=== PATIENT | female | born 1955 | race African-American/Black ===

== ENCOUNTER 2023-08-03 12:57 | Emergency (ER) | payer OTHER, SELFPAY ==
--- NOTE | ~2023-08-03 | CT_ITS ---
EXAMINATION: CT HEAD WITHOUT CONTRAST CLINICAL INFORMATION: Head injury, pain COMPARISON: None available. TECHNIQUE: Contiguous axial imaging was performed from the skull base to vertex without intravenous administration of contrast. This CT examination was performed using dose optimization techniques as appropriate, variously including the following: *Automated exposure control *Adjustment of mA and/or kV according to patient size (this includes techniques or standardized protocols for targeted exams where dose is matched to indication/reason for exam; i.e. extremities or head) *Use of iterative reconstruction technique DLP: 648.21 mGy-cm FINDINGS: No acute intracranial hemorrhage or infarct. The hammond-white matter differentiation is preserved. No midline shift or hydrocephalus. No acute extra-axial fluid collections. The osseous structures are unremarkable. No orbital pathology. Complete opacification of the most posterior right ethmoid air cell. Mastoid air cells are clear. Atherosclerotic calcifications of the bilateral carotid siphons. CT/CT head/brain wo IV con IMPRESSION: No acute intracranial pathology.
[2023-08-03 12:59] VITALS: BP 143/99; PULSE 70; RESP 20; TEMP 36.8; O2SAT 98; BMI 25.4
--- NOTE | 2023-08-03 12:59 | ED_ITS ---
HPI - General Adult General Chief complaint: General Medical Stated complaint: Dizziness/Low blood pressure Time Seen by Provider: 08/03/23 13:43 Source: patient Mode of arrival: ambulatory Limitations: no limitations History of Present Illness HPI narrative: Patient is a 67 year old assigned female at with no reported medical history presenting to the emergency department today with dizziness / weakness and back pain. Patient states that on 07/24 she had a heavy metal bar fall on her upper back. Patient states that since then she has had dizziness, weakness, and back pain. Patient states that she was seen at [facility] where they scanned her cervical and thoracic spine that showed no fractures. Patient denies any lightheadedness, abdominal pain, nausea, vomiting, fever, chills, blurry vision, double vision, loss of vision, chest pain, difficulty breathing, shortness of breath, night sweats, pain with urination, increased urinary frequency, increased urinary urgency, blood in her urine or stool, syncope or a near syncopal episode, bowel incontinence, bladder incontinence, bowel retention, bladder retention, or any other complaints at this time. Onset (ago): day(s) () Location: head and back Severity: mild Severity scale (1-10): 3 Quality: aching and dull Pain Consistency: constant Relieving factors: none Exacerbating factors: none Associated symptoms: weakness Treatments prior to arrival: none Related Data Previous Rx's Medication Instructions Recorded ondansetron 4 mg disintegrating 4 mg PO Q8H 3 days #9 tabs 08/03/23 tablet Allergies Allergy/AdvReac Type Severity Reaction Status Date / Time Penicillins Allergy rash Unverified 08/03/23 13:04 percocet AdvReac other Uncoded 08/03/23 13:04 Review of Systems 2 Constitutional: Constitutional: Reports no additional constitutional complaints, Denies chills, Denies fever(s), Reports headache(s) and Denies night sweats Eyes: Eyes: Reports no additional eye complaints, Denies blurry vision, Denies change in vision, Denies diplopia, Denies eye discharge, Denies loss of vision and Denies eye pain ENT: Reports dizziness and Reports headache(s) Cardiovascular: Cardiovascular: Reports no additional cardiovascular complaints, Denies chest pain, Denies lightheadedness, Denies Loss of Consciousness and Denies dyspnea Respiratory: Respiratory: Reports no additional respiratory complaints and Denies dyspnea Gastrointestinal: Gastrointestinal: Reports no additional gastrointestinal complaints, Denies abdominal pain, Denies melena, Denies hematochezia, Denies change in bowel habits and Denies change in stool character Genitourinary: Genitourinary: Denies hematuria, Denies urinary frequency, Denies dysuria, Denies urinary incontinence, Denies urinary hesitancy and Denies urinary urgency Musculoskeletal: Musculoskeletal: Reports no additional musculoskeletal complaints, Reports back pain, Denies numbness and Denies tingling Neurologic: Reports dizziness, Reports headache(s), Denies loss of vision, Denies numbness and Denies tingling Psychiatric: Psychiatric: Reports no additional psychiatric complaints Endocrine: Endocrine: Reports no additional endocrine complaints Hematologic/Lymphatic: Hematologic/Lymphatic: Reports no additional hematologic/lymphatic complaints Allergic/Immunologic: Allergic/Immunologic: Reports no additional allergic/immunologic complaints PMFSH Past Medical History Attestation statement: The following information was validated with the patient. Source: old records reviewed and nursing notes reviewed Social History Smoked in Last 30 Days: Yes Advance Directives: No Advance Directives Information Provided: Yes Physical Exam ED Vital Signs: Vital Signs - 24 hr 08/03/23 12:59 08/03/23 13:28 Temperature 98.2 F 98.1 F Pulse Rate 70 64 Respiratory Rate 20 13 Blood Pressure 143/99 H 121/65 Pulse Oximetry 98 98 Oxygen Delivery Method Room Air Room Air BMI result Body Mass Index 25.4 Const General: cooperative, no acute distress, alert and awake Nutritional Appearance: well nourished Orientation/consciousness: patient oriented x3 Limitations: no limitations [facility] Head: Yes normal to inspection and Yes atraumatic Ears: hearing grossly normal bilaterally and external ears normal General nose exam: Normal external nose present, no nasal discharge noted and no epistaxis Face and sinus: Yes normal facial exam, No abrasion and No laceration Mouth: Normal oral and palatal mucosa present, no drooling and no muffled voice Eyes General: appearance normal, both eyes and all related structures Periorbital: periorbital findings normal Eyelids: Yes eyelids normal Conjunctivae: conjunctivae normal Pupils: Equal, round and reactive pupils present EOM: EOMs intact bilaterally Neck Neck: Yes normal visual inspection, Yes full ROM and Yes no lymphadenopathy Chest Chest palpation & inspection: normal inspection of the chest Resp Effort & Inspection: normal respiratory effort and able to speak in complete sentences GI Inspection: Yes normal to inspection General: Yes no CVA tenderness Back/Spine/Pelvis Back: no CVA tenderness Cervical Spine: normal cervical lordosis and cervical ROM normal Thoracic/Lumbar Spine: thoracic and lumbar spine normal to inspection and thoraco-lumbar ROM normal Pelvis: no pain with anterior-posterior compression Neuro General: patient oriented x3 and moves all extremities Cranial nerves: Yes Equal, round and reactive pupils present Cognition (Neuro): normal cognition Motor exam (neuro): 5/5 motor strength present throughout Sensory Exam: Normal double simultaneous stimulation for sensation Coordination: [id number] test normal Extrem General: Yes normal to inspection, Yes full ROM and Yes capillary refill normal Psych Appearance: grossly normal Mental Status: mental status grossly normal Affect: normal affect Attitude: cooperative Thought process: Normal thought process present Thought content: Normal thought content present Insight: Good insight present (Psych) Course Course Course Narrative: This is a rapid medical exam: Additional HPI, ROS, PE not included below will be deferred to primary provider. Patient is a 67-year-old female presenting to the ED with complaint of dizziness since a metal bar fell on her at work on 07/25. Patient was seen at [facility] after the injury, had a CT scan there and was told she did not have any injuries. Complains of bilateral shoulder pain since that time. Checked BP at home which was low, 101 systolic. Has been taking Tylenol and a muscle relaxer for her pain. Plan: EKG, basic labs, [place] [facility] [place] Decision Making Medical Decision Making MDM Narrative: Patient is a 67 year old assigned female at with no reported medical history presenting to the emergency department today with dizziness. Patient's physical exam was unremarkable. Patient's blood work was unremarkable. Patient's EKG was unremarkable. Patient's head CT showed no acute process. I reviewed the results of the cervical and thoracic CTs from [facility] which showed no acute process. I explained my physical exam findings as well as all test results to the patient. I answered all questions asked by the patient. I stressed the importance of the patient taking her medication as prescribed. 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 I stressed the importance of the patient returning to the emergency department immediately if her symptoms were to worsen or if she were to develop any dizziness, shortness of breath, difficulty breathing, chest pain, blurry vision, loss of vision, nausea, vomiting, abdominal pain, fever, chills, back pain, or any other complaints. Patient verbalized agreement and understanding with this treatment plan and discharge. Differential Diagnosis Differential Diagnoses: The differential diagnosis associated with the presentation includes Concussion Back pain Muscle spasm Admission/Observation Consideration of admission/observation: Escalation of care including admission/observation considered Patient would have been admitted to the hospital had her work up had any findings where hospital admission was appropriate and her clinical presentation warranted hospital admission. Lab Data MDM Lab Attestation statement: I reviewed the patient's lab results. My interpretation of these studies and their corresponding values is that they are grossly normal. 08/03/23 13:21 08/03/23 13:21 Labs: Lab Results 08/03/23 Range/Units 13:21 WBC 3.7 L (4.8-10.8) X10*3/uL RBC 4.16 L (4.20-5.50) X10*6/uL Hgb 11.5 L (12.0-16.0) g/dl Hct 32.1 L (37.0-47.0) % MCV 77.2 L (80.0-98.0) fL MCH 27.6 (27.0-33.0) pg MCHC 35.8 H (31.0-35.0) g/dl RDW 14.0 (11.0-16.0) % Plt Count 193 (160-400) X10*3/uL MPV 10.6 (9.4-12.3) fL Immature Gran % (Auto) 0.0 (0.0-0.4) % Neut % (Auto) 39.8 L (45-73) % Lymph % (Auto) 43.1 H (20-40) % [place] % (Auto) 16.3 H (2-11) % Eos % (Auto) 0.3 (0-4) % Baso % (Auto) 0.5 (0-2) % Lymph # (Auto) 1.6 (1.2-4.9) X10*3/uL [place] # (Auto) 0.6 (0.1-1.2) X10*3/uL Eos # (Auto) 0.0 (0.0-0.4) X10*3/uL Baso # (Auto) 0.0 (0.0-0.2) X10*3/uL Abs Immat Gran (auto) 0.00 (0.00-0.03) X10*3/uL Absolute Neuts (auto) 1.5 L (2.0-8.3) x10*3/uL Absolute Nucleated RBC 0.000 (0.0-0.012) X10*3/uL Nucleated RBC % (auto) 0.0 (0.0-0.2) /100WBC Sodium 136 (135-145) mmol/L Potassium 3.4 (3.3-5.1) mmol/L Chloride 103 (96-108) mmol/L Carbon Dioxide 26 (22-29) mmol/L Anion Gap 10 L (12-20) BUN 13 (9-16) mg/dL Creatinine 0.79 (0.5-1.4) mg/dL Estim Creat Clear Calc 55.5 Estimated GFR > 60 Random Glucose 125 H (60-115) mg/dL Calcium 9.6 (8.4-10.2) mg/dL Independent Interpretation I performed an independent interpretation of an: EKG and CT Scan Interpretation: My interpretation is in agreement with the radiologist's impression of this imaging study. - EXAMINATION: CT HEAD WITHOUT CONTRAST CLINICAL INFORMATION: Head injury, pain COMPARISON: None available. TECHNIQUE: Contiguous axial imaging was performed from the skull base to vertex without intravenous administration of contrast. This CT examination was performed using dose optimization techniques as appropriate, variously including the following: *Automated exposure control *Adjustment of mA and/or kV according to patient size (this includes techniques or standardized protocols for targeted exams where dose is matched to indication/reason for exam; i.e. extremities or head) *Use of iterative reconstruction technique DLP: 648.21 mGy-cm FINDINGS: No acute intracranial hemorrhage or infarct. The hammond-white matter differentiation is preserved. No midline shift or hydrocephalus. No acute extra-axial fluid collections. The osseous structures are unremarkable. No orbital pathology. Complete opacification of the most posterior right ethmoid air cell. Mastoid air cells are clear. Atherosclerotic calcifications of the bilateral carotid siphons. CT/CT head/brain wo IV con IMPRESSION: No acute intracranial pathology. Dictated By: Cecille Rick MD Signed By: Electronically signed by Cecille Rick MD 08/03/23 1452 - Vent. Rate: 066 BPM Atrial Rate: 066 BPM P-R Int: 228 ms QRS Dur: 082 ms QT Int: 396 ms P-R-T Axes: 043 -08 054 degrees QTc Int: 415 ms Sinus rhythm with 1st degree A-V block Nonspecific ST abnormality Abnormal ECG No previous ECGs available DD/ 1316 Radiology Impression Discussion of test interpretation with radiology: I have reviewed the radiologist's reading. 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 Return to the emergency department immediately if your symptoms worsen or if you develop any dizziness, shortness of breath, difficulty breathing, chest pain, blurry vision, loss of vision, nausea, vomiting, abdominal pain, fever, chills, back pain, or any other complaints. Prescriptions: New ondansetron 4 mg tablet,disintegrating 4 mg PO Q8H 3 Days Qty: 9 0RF Referrals: [facility] [place] [facility] [Provider Group] (Call to establish and follow up with a primary care provider. If you already have a primary care provider, please follow up with them.) [facility] [place] Primary [facility], [place] [Provider Group] (Call to establish and follow up with a primary care provider. If you already have a primary care provider, please follow up with them.) [facility] [place] [facility],[place]ber [Provider Group] (Call to establish and follow up with a primary care provider. If you already have a primary care provider, please follow up with them.) [facility] [Provider Group] (If pain persists, please call to establish and follow up with a artillery specialist.) Print Language: Arabic
--- NOTE | 2023-08-03 13:04 | ECG_ITS ---
Test Reason : DIZZINESS Blood Pressure : / mmHG Vent. Rate : 066 BPM Atrial Rate : 066 BPM P-R Int : 228 ms QRS Dur : 082 ms QT Int : 396 ms P-R-T Axes : 043 -08 054 degrees QTc Int : 415 ms Poor data quality Sinus rhythm with 1st degree A-V block Nonspecific ST abnormality Abnormal ECG No previous ECGs available Referred By: Marita Aguirre Electronically Signed By:REYNA العراقي MD
[2023-08-03 13:26] LABS: MANUAL DIFF FLAG NO
[2023-08-03 13:28] VITALS: BP 121/65; PULSE 64; RESP 13; TEMP 36.7; O2SAT 98
[2023-08-03 13:36] LABS: Basophils Percent Auto 0.5 % (0-2); Eosinophils Percent Auto 0.3 % (0-4); Hematocrit 32.1 % (37.0-47.0); Hemoglobin 11.5 g/dl (12.0-16.0); Lymphocytes Absolute Auto 1.6 X10*3/uL (1.2-4.9); Lymphocytes Percent Auto 43.1 % (20-40); Mean Corpuscular HGB Conc 35.8 g/dl (31.0-35.0); Mean Corpuscular Hemoglobin 27.6 pg (27.0-33.0); Mean Corpuscular Volume 77.2 fL (80.0-98.0); Mean Platelet Volume 10.6 fL (9.4-12.3); Monocytes Absolute Auto 0.6 X10*3/uL (0.1-1.2); Monocytes Percent Auto 16.3 % (2-11); Neutrophils Absolute Auto 1.5 x10*3/uL (2.0-8.3); Neutrophils Percent Auto 39.8 % (45-73); Platelet Count 193 X10*3/uL (160-400); Red Blood Count 4.16 X10*6/uL (4.20-5.50); White Blood Count 3.7 X10*3/uL (4.8-10.8)
[2023-08-03 13:39] LABS: Anion Gap 10 (12-20); Blood Urea Nitrogen 13 mg/dL (9-16); Calcium 9.6 mg/dL (8.4-10.2); Carbon Dioxide 26 mmol/L (22-29); Chloride 103 mmol/L (96-108); Creatinine Clr Calc Pharmacy 55.5; Estimated Glomerular Filt Rate > 60; Glucose Random 125 mg/dL (60-115); Potassium 3.4 mmol/L (3.3-5.1); Sodium 136 mmol/L (135-145)
--- OUTSIDE RECORDS SUMMARY | 2023-08-03 14:00 | XMS_ITS | Continuity of Care Document ---
Author Name Unknown Organization [facility] Address [address] [place] [address]- Care Team Providers Care Social Studies Department Chair Name Role Phone Ti Caballero MD Primary Care Physician [place] [facility] [place] - 01/10/20 [facility] [address] [place] [address]- [facility] Attending Physician: Ti Caballero MD Allergies, Adverse Reactions, Alerts Substance Reaction Severity Status lisinopril Facial swelling Active penicillins Active Percocet 5/325 Active Immunizations Given and Recorded Vaccine Date Status Refusal Reason hepatitis B adult vaccine 1 11/08/11 Given tetanus/diphtheria/pertussis, acel(Tdap) 04/01/09 Given 1Admin Note: vis given Medications amLODIPine 5 mg oral tablet 5 mg, 1, tablet, By Mouth, Daily, # 90 tablet, Refills 3, Tot. Refills 3, Maintenance, 01/03/20 10:45:00 EDT, Route to Pharmacy Electronically, [facility]/pharmacy #[id number], 153, cm, 11/01/19 15:27:00 EST, Height, 59.9, kg, 05/14/19 13:52:00 EDT, Dry Weight Start Date: 01/03/20 Stop Date: 12/28/20 Status: Ordered aspirin 81 mg oral enteric coated tablet 1 tablet = 81 mg, By Mouth, Daily, # 90 tablet, 1 Refills, Maintenance, 03/31/14 11:20:46, EC Tablet, 1 tablet By Mouth Daily,x90 days Start Date: 03/31/14 Stop Date: 09/27/14 Status: Ordered hydrochlorothiazide 25 mg oral tablet 25 mg, 1, tablet, By Mouth, Daily, # 90 tablet, Refills 3, Tot. Refills 3, Maintenance, 01/03/20 10:45:00 EDT, Route to Pharmacy Electronically, [facility]/pharmacy #[id number], 153, cm, 11/01/19 15:27:00 EST, Height, 59.9, kg, 05/14/19 13:52:00 EDT, Dry Weight Start Date: 01/03/20 Stop Date: 12/28/20 Status: Ordered loratadine 10 mg oral tablet 10 mg, 1, tablet, By Mouth, Daily, PRN, # 100 tablet, Refills 5, Tot. Refills 5, Maintenance, allergy symptoms, 01/03/20 10:54:00 EDT, Route to Pharmacy Electronically, [facility]/pharmacy #[id number], 153, cm, 11/01/19 15:27:00 EST, Height, 59.9, kg, 05/14/19 13:... Start Date: 01/03/20 Stop Date: 06/26/21 Status: Ordered losartan 100 mg oral tablet 1 tablet = 100 mg, By Mouth, Daily, # 90 tablet, 3 Refills, Maintenance, 01/03/20 10:45:00 EDT, Tablet, [facility]/pharmacy #[id number], 153, cm, 11/01/19 15:27:00 EST, Height, 59.9, kg, 05/14/19 13:52:00 EDT, Dry Weight Start Date: 01/03/20 Stop Date: 12/28/20 Status: Ordered Nasonex 50 mcg/inh nasal spray 2 sprays, Nares, Both, 2 times a day, # 3 each, 3 Refills, Maintenance, 01/03/20 10:54:00 EDT, [place], [facility]/pharmacy #[id number], 2 sprays Nares, Both 2 times a day,x90 days, 153, cm, 11/01/19 15:27:00 EST, Height, 59.9, kg, 05/14/19 13:52:00 EDT, Dry Weight Start Date: 01/03/20 Stop Date: 12/28/20 Status: Ordered Problem List Condition Effective Dates Status Health Status Inform ant Allergic rhinitis(Confirmed) Active Carotid stenosis(Confirmed) Active Eczema(Confirmed) Active Essential hypertension(Confirmed) Active Hx of transient ischemic att ack (TIA)(Confirmed) 2013 Active Hemoglobin C trait(Confirmed) Active Hyperglycemia(Confirmed) Active Tobacco user(Confirmed) Active Social History Social History Type Response Smoking Status Current every day 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
--- OUTSIDE RECORDS SUMMARY | 2023-08-03 14:00 | XMS_ITS | Continuity of Care Document ---
Author Name Unknown Organization [facility] Address [address] [place] [address]- Care Team Providers Care Imagery Intelligence Name Role Phone Ti Caballero MD Primary Care Physician Encounter [facility] [place] Date(s): 04/14/22 - 05/14/22 [facility] [address] [place], [place] [address] Attending Physician: Felipe Caputo Admitting Physician: AdmtrFelipe Referring Physician: Admtr, ArRobert Allergies, Adverse Reactions, Alerts Substance Reaction Severity Status lisinopril Facial swelling Active penicillins Active Percocet 5/325 Active Immunizations Given and Recorded Vaccine Date Status Refusal Reason tetanus/diphtheria/pertussis, acel(Tdap) 1 04/23/20 Given tetanus/diphtheria/pertussis, acel(Tdap) 04/01/09 Given hepatitis B adult vaccine 2 11/08/11 Given hepatitis B adult vaccine 05/04/11 Recorded hepatitis B adult vaccine 04/07/11 Recorded hepatitis B adult vaccine 06/10/09 Recorded hepatitis B adult vaccine 05/06/09 Recorded 1Result Comment: [id number] given w/out incident 2Admin Note: vis given Medications amLODIPine 5 mg oral tablet 5 mg, 1, tablet, By Mouth, Daily, # 90 tablet, Refills 3, Tot. Refills 3, Maintenance, 10/22/21 16:26:00 EST, Route to Pharmacy Electronically, [facility]/pharmacy #[id number], 153, cm, 10/22/21 16:25:00 EST, Height Start Date: 10/22/21 Stop Date: 10/17/22 Status: Ordered chlorthalidone 25 mg oral tablet 25 mg, 1, tablet, By Mouth, Daily, # 30 tablet, Refills 5, Maintenance, 03/04/22 8:58:00 EDT, Partial fill upon patient request if the prescription is for a schedule II opioid drug. Start Date: 03/04/22 Stop Date: 04/03/22 Status: Ordered hydrochlorothiazide 25 mg oral tablet 1, tablet, By Mouth, Daily, # 90 tablet, Refills 2, Maintenance, 05/09/22 12:55:00 EDT, Route to Pharmacy Electronically, [id number], 153, cm, 04/14/22 14:10:00 EDT, Height Start Date: 05/09/22 Status: Ordered losartan 100 mg oral tablet 1 tablet, By Mouth, Daily, # 90 tablet, 3 Refills, [id number], 153, cm, 10/22/21 16:25:00 EST,Height Start Date: 03/01/22 Status: Ordered meloxicam 15 mg oral tablet 1 tablet = 15 mg, By Mouth, Daily, # 14 tablet, 0 Refills, Maintenance, 04/14/22 14:29:00 EDT, Tablet, [id number], Partial fill upon patient request if the prescription is for a schedule II opioid drug., 153, cm, 04/14/22 14:10:00 EDT, Height Start Date: 04/14/22 Stop Date: 04/28/22 Status: Ordered mometasone 50 mcg/inh nasal spray See Instructions, USE 2 SPRAY IN BOTH NOSTRIL TWICE A DAY FOR 90 DAYS, # 51 Unknown, 2 Refills, [id number], 90, USE 2 SPRAY IN BOTH NOSTRIL TWICE A DAY FOR 90 DAYS, 153, cm, 10/22/21 16:25:00 EST, Height Start Date: 02/11/22 Status: Ordered Problem List Condition Effective Dates Status Health Status Inform ant Allergic rhinitis(Confirmed) Active Carotid stenosis(Confirmed) Active Eczema(Confirmed) Active Essential hypertension(Confirmed) Active Fall(Confirmed) Active Hx of transient ischemic att ack (TIA)(Confirmed) 2013 Active Hemoglobin C trait(Confirmed) Active Hyperglycemia(Confirmed) Active Social History Social History Type Response Smoking Status Current every day sm oker; Number of years: 40; entered on: 09/15/16 Sex Care Team Personnel Name: Ti Caballero MD Address: [address] [place] [address] Adult [place] [address]- [place]
--- OUTSIDE RECORDS SUMMARY | 2023-08-03 14:00 | XMS_ITS | Continuity of Care Document ---
Author Name Unknown Organization [facility] Address [address] [place] [address]- Care Team Providers Care Rn Maternity Name Role Phone Ti Caballero MD Primary Care Physician Encounter [facility] [place] Date(s): 01/15/20 - 02/14/20 [facility] [address] [place] [address]- [facility] Attending Physician: Felipe Caputo Admitting Physician: AdmFelipe hinton Referring Physician: AdmtrFelipe Allergies, Adverse Reactions, Alerts Substance Reaction Severity [...] 10:45:00 EDT, Route to Pharmacy Electronically, [facility]/pharmacy #[id number], 153, cm, 11/01/19 15:27:00 EST, Height, [...] 10:45:00 EDT, Route to Pharmacy Electronically, [facility]/pharmacy #[id number], 153, cm, 11/01/19 15:27:00 EST, Height, 59.9, kg, 05/14/19 13:52:00 EDT, Dry Weight Start Date: 01/03/20 Stop Date: 12/28/20 Status: Ordered loratadine 10 mg oral tablet 10 mg, 1, tablet, By Mouth, Daily, PRN, # 100 tablet, Refills 5, Tot. Refills 5, Maintenance, allergy symptoms, 01/03/20 10:54:00 EDT, Route to Pharmacy Electronically, [facility]/pharmacy #[id number], 153, cm, 11/01/19 15:27:00 EST, Height, 59.9, kg, 05/14/19 13:... Start Date: 01/03/20 Stop Date: 06/26/21 Status: Ordered losartan 100 mg oral tablet 1 tablet = 100 mg, By Mouth, Daily, # 90 tablet, 3 Refills, Maintenance, 01/03/20 10:45:00 EDT, Tablet, [facility]/pharmacy #[id number], 153, cm, 11/01/19 15:27:00 EST, Height, 59.9, kg, 05/14/19 13:52:00 EDT, Dry Weight Start Date: 01/03/20 Stop Date: 12/28/20 Status: Ordered Nasonex 50 mcg/inh nasal spray 2 sprays, Nares, Both, 2 times a day, # 3 each, 3 Refills, Maintenance, 01/03/20 10:54:00 EDT, [place], [facility]/pharmacy #[id number], 2 sprays Nares, Both 2 times a day,x90 days, 153, cm, 11/01/19 15:27:00 EST, Height, 59.9, kg, 05/14/19 13:52:00 EDT, Dry Weight Start Date: 01/03/20 Stop Date: 12/28/20 Status: Ordered Problem List Condition Effective Dates Status Health Status Inform ant Allergic rhinitis(Confirmed) Active Carotid stenosis(Confirmed) Active Eczema(Confirmed) Active Essential hypertension(Confirmed) Active Hx of transient ischemic att ack (TIA)(Confirmed) 2012 Active Hemoglobin C trait(Confirmed) Active Hyperglycemia(Confirmed) Active Tobacco user(Confirmed) Active Social History Social History Type Response Smoking Status Current every day 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
--- OUTSIDE RECORDS SUMMARY | 2023-08-03 14:00 | XMS_ITS | Continuity of Care Document ---
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 Role Phone Ti Caballero MD Primary Care Physician Encounter [facility] Date(s): 07/30/20 - 08/29/20 [facility] [address] [place], [place] [address] Allergies, Adverse Reactions, Alerts Substance Reaction Severity Status lisinopril Facial swelling Active penicillins Active Percocet 5/325 Active Immunizations Given and Recorded Vaccine Date Status Refusal Reason tetanus/diphtheria/pertussis, acel(Tdap) 1 04/23/20 Given tetanus/diphtheria/pertussis, acel(Tdap) 04/01/09 Given hepatitis B adult vaccine 2 11/08/11 Given 1Result Comment: [id number] given w/out incident 2Admin Note: vis given Medications amLODIPine 5 mg oral tablet 5 mg, 1, tablet, By Mouth, Daily, # 90 tablet, Refills 3, Tot. Refills 3, Maintenance, 01/03/20 10:45:00 EDT, Route to Pharmacy Electronically, [facility]/pharmacy #[id number], 153, cm, 11/01/19 15:27:00 EST, [...] 01/03/20 10:45:00 EDT, Route to Pharmacy Electronically, [facility]/pharmacy #[id number], 153, cm, 11/01/19 15:27:00 EST, Height, 59.9, kg, 05/14/19 13:52:00 EDT, Dry Weight Start Date: 01/03/20 Stop Date: 12/28/20 Status: Ordered loratadine 10 mg oral tablet 10 mg, 1, tablet, By Mouth, Daily, PRN, # 100 tablet, Refills 5, Tot. Refills 5, Maintenance, allergy symptoms, 01/03/20 10:54:00 EDT, Route to Pharmacy Electronically, [facility]/pharmacy #[id number], 153, cm, 11/01/19 15:27:00 EST, Height, 59.9, kg, 05/14/19 13:... Start Date: 01/03/20 Stop Date: 06/26/21 Status: Ordered losartan 100 mg oral tablet 1 tablet = 100 mg, By Mouth, Daily, # 90 tablet, 3 Refills, Maintenance, 01/03/20 10:45:00 EDT, Tablet, [facility]/pharmacy #[id number], 153, cm, 11/01/19 15:27:00 EST, Height, 59.9, kg, 05/14/19 13:52:00 EDT, Dry Weight Start Date: 01/03/20 Stop Date: 12/28/20 Status: Ordered Nasonex 50 mcg/inh nasal spray 2 sprays, Nares, Both, 2 times a day, # 3 each, 3 Refills, Maintenance, 01/03/20 10:54:00 EDT, [place], [facility]/pharmacy #[id number], 2 sprays Nares, Both 2 [...]
--- OUTSIDE RECORDS SUMMARY | 2023-08-03 14:00 | XMS_ITS | Continuity of Care Document ---
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 Refills 0, Maintenance, 07/11/21 13:47:00 EDT, Route to Pharmacy Electronically, [facility]/pharmacy #[id number], 153, cm, 12/11/20 10:20:00 EDT, Height Start Date: 07/11/21 Stop Date: 10/09/21 Status: Ordered aspirin 81 mg oral enteric coated tablet 1 tablet = 81 mg, By Mouth, Daily, # 90 tablet, 1 Refills, Maintenance, 03/31/14 11:20:46, EC Tablet, 1 tablet By Mouth Daily,x90 days Start Date: 03/31/14 Stop Date: 09/27/14 Status: Ordered diclofenac 1% topical gel See Instructions, PLEASE SEE ATTACHED FOR DETAILED DIRECTIONS, # 100 Gm, 0 Refills, Maintenance, [id number], 30, PLEASE SEE ATTACHED FOR DETAILED DIRECTIONS, 153, cm, 12/11/20 10:20:00 EDT, Height, 59.9, kg, 05/14/19 13:52:00 EDT, Dry Weight Start Date: 12/17/20 Status: Ordered hydrochlorothiazide 25 mg oral tablet 25 mg, 1, tablet, By Mouth, Daily, # 90 tablet, Refills 1, Tot. Refills 1, Maintenance, 01/21/21 9:44:00 EDT, Route to Pharmacy Electronically, [facility]/pharmacy #[id number], 153, cm, 12/11/20 10:20:00 EDT, Height, 59.9, kg, 05/14/19 13:52:00 EDT, Dry Weight Start Date: 01/21/21 Stop Date: 07/20/21 Status: Ordered loratadine 10 mg oral tablet 10 mg, 1, tablet, By Mouth, Daily, PRN, # 100 tablet, Refills 1, Tot. Refills 1, Maintenance, allergy symptoms, 06/26/21 10:54:00 EDT, Route to Pharmacy Electronically, [facility]/pharmacy #[id number], 153, cm, 12/11/20 10:20:00 EDT, Height, 59.9, kg, 05/14/19 13:... Start Date: 06/26/21 Stop Date: 12/23/21 Status: Ordered losartan 100 mg oral tablet 1 tablet, By Mouth, Daily, # 90 tablet, 3 Refills, Maintenance, 01/21/21 13:47:00 EDT, [id number], 153, cm, 12/11/20 10:20:00 EDT, Height, 59.9, kg, 05/14/19 13:52:00 EDT, Dry Weight Start Date: 01/21/21 Status: Ordered Nasonex 50 mcg/inh nasal spray 2 sprays, Nares, Both, 2 times a day, # 3 each, 1 Refills, Maintenance, 01/21/21 9:44:00 EDT, [place], [facility]/pharmacy #[id number], 2 sprays Nares, Both 2 times a day,x90 days, 153, cm, 12/11/20 10:20:00 EDT, Height, 59.9, kg, 05/14/19 13:52:00 EDT, Dry Weight Start Date: 01/21/21 Stop Date: 07/20/21 Status: Ordered Problem List Condition Effective Dates [...]
--- OUTSIDE RECORDS SUMMARY | 2023-08-03 14:00 | XMS_ITS | Continuity of Care Document ---
Author Name Unknown Organization [facility] Address [address] [place] [address]- Care Team Providers Care Operations Administrator Name Role Phone Ti Caballero MD Primary Care Physician [place] [facility] [place] 12/16[place]20 - 01/15/21 [facility] [address] [place], [place] [address] Allergies, Adverse Reactions, Alerts Substance Reaction Severity Status lisinopril Facial swelling Active penicillins Active Percocet 5/325 Active Immunizations Given and Recorded Vaccine Date Status Refusal Reason tetanus/diphtheria/pertussis, acel(Tdap) 1 04/23/20 Given tetanus/diphtheria/pertussis, acel(Tdap) 04/01/09 Given hepatitis B adult vaccine 2 11/08/11 Given 1Result Comment: [id number] given w/out incident 2Admin Note: vis given Medications amLODIPine 5 mg oral tablet 5 mg, 1, tablet, By Mouth, Daily, # 90 tablet, Refills 1, Tot. Refills 1, Maintenance, 01/12/21 13:47:00 EDT, Route to Pharmacy Electronically, [facility]/pharmacy #[id number], 153, cm, 12/11/20 10:20:00 EDT, Height, 59.9, kg, 05/14/19 13:52:00 EDT, Dry Weight Start Date: 01/12/21 Stop Date: 07/11/21 Status: Ordered aspirin 81 mg oral enteric coated tablet 1 tablet = 81 mg, By Mouth, Daily, # 90 tablet, 1 Refills, Maintenance, 03/31/14 11:20:46, EC Tablet, 1 tablet By Mouth Daily,x90 days Start Date: 03/31/14 Stop Date: 09/27/14 Status: Ordered diclofenac 1% topical gel See Instructions, PLEASE SEE ATTACHED FOR DETAILED DIRECTIONS, # 100 Gm, 0 Refills, Maintenance, [id number], 30, PLEASE SEE ATTACHED FOR DETAILED DIRECTIONS, 153, cm, 12/11/20 10:20:00 EDT, Height, 59.9, kg, 05/14/19 13:52:00 EDT, Dry Weight Start Date: 12/17/20 Status: Ordered hydrochlorothiazide 25 mg oral tablet 25 mg, 1, tablet, By Mouth, Daily, # 90 tablet, Refills 3, Tot. Refills 3, Maintenance, 01/03/20 10:45:00 EDT, [id number], cm, 11/01/19 15:27:00 EST, Height, 59.9, kg, 05/14/19 13:52:00 EDT, Dry Weight Start Date: 01/03/20 Stop Date: 12/28/20 Status: Ordered loratadine 10 mg oral tablet 10 mg, 1, tablet, By Mouth, Daily, PRN, # 100 tablet, Refills 5, Tot. Refills 5, Maintenance, allergy symptoms, 01/03/20 10:54:00 EDT, [id number], [facility], cm, 11/01/19 15:27:00 EST, Height, 59.9, kg, 05/14/19 13:... Start Date: 01/03/20 Stop Date: 06/26/21 Status: Ordered losartan 100 mg oral tablet 1 tablet = 100 mg, By Mouth, Daily, # 90 tablet, 3 Refills, Maintenance, 01/03/20 10:45:00 EDT, Tablet, [facility]/pharmacy #[id number], 153, cm, 11/01/19 15:27:00 EST, Height, 59.9, kg, 05/14/19 13:52:00 EDT, Dry Weight Start Date: 01/03/20 Stop Date: 12/28/20 Status: Ordered Nasonex 50 mcg/inh nasal spray 2 sprays, Nares, Both, 2 times a day, # 3 each, 3 Refills, Maintenance, 01/03/20 10:54:00 EDT, [place], [facility]/pharmacy #[id number], 2 sprays Nares, Both 2 times [...]
--- OUTSIDE RECORDS SUMMARY | 2023-08-03 14:00 | XMS_ITS | Continuity of Care Document ---
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 Role Phone Ti Caballero MD Primary Care Physician [place] [facility] Date(s[place] 04/23/20 - 04/30/20 [facility] [address] [place] [address]- [facility] Encounter Diagnosis Arm paresthesia, right(Discharge Diagnosis) - 04/23/20 Carotid stenosis(Discharge Diagnosis) - 04/23/20 Essential hypertension(Discharge Diagnosis) - 04/23/20 Hyperglycemia(Discharge Diagnosis) - 04/23/20 Tobacco user(Discharge Diagnosis) - 04/23/20 Attending Physician: Ti Caballero MD Allergies, Adverse Reactions, Alerts Substance Reaction Severity Status lisinopril Facial swelling Active penicillins Active Percocet 5/325 Active Immunizations Given and Recorded Vaccine Date Status Refusal Reason tetanus/diphtheria/pertussis, acel(Tdap) 1 04/23/20 Given tetanus/diphtheria/pertussis, acel(Tdap) 04/01/09 Given hepatitis B adult vaccine 2 11/08/11 Given 1Result Comment: [id number] given w/out incident 2Admin Note: vis given Medications amLODIPine 5 mg oral tablet 5 mg, 1, tablet, By Mouth, Daily, # 90 tablet, Refills 3, Tot. Refills 3, Maintenance, 01/03/20 10:45:00 EDT, Route to Pharmacy Electronically, [facility]/pharmacy #[id number], 153, cm, 11/01/19 15:27:00 EST, [...] 01/03/20 10:45:00 EDT, Route to Pharmacy Electronically, [facility]/pharmacy #[id number], 153, cm, 11/01/19 15:27:00 EST, Height, 59.9, kg, 05/14/19 13:52:00 EDT, Dry Weight Start Date: 01/03/20 Stop Date: 12/28/20 Status: Ordered loratadine 10 mg oral tablet 10 mg, 1, tablet, By Mouth, Daily, PRN, # 100 tablet, Refills 5, Tot. Refills 5, Maintenance, allergy symptoms, 01/03/20 10:54:00 EDT, Route to Pharmacy Electronically, [facility]/pharmacy #[id number], 153, cm, 11/01/19 15:27:00 EST, Height, 59.9, kg, 05/14/19 13:... Start Date: 01/03/20 Stop Date: 06/26/21 Status: Ordered losartan 100 mg oral tablet 1 tablet = 100 mg, By Mouth, Daily, # 90 tablet, 3 Refills, Maintenance, 01/03/20 10:45:00 EDT, Tablet, [facility]/pharmacy #[id number], 153, cm, 11/01/19 15:27:00 EST, Height, 59.9, kg, 05/14/19 13:52:00 EDT, Dry Weight Start Date: 01/03/20 Stop Date: 12/28/20 Status: Ordered Nasonex 50 mcg/inh nasal spray 2 sprays, Nares, Both, 2 times a day, # 3 each, 3 Refills, Maintenance, 01/03/20 10:54:00 EDT, [place], [facility]/pharmacy #[id number], 2 sprays Nares, Both 2 [...] trait(Confirmed) Active Hyperglycemia(Confirmed) Active Tobacco user(Confirmed) Active Diagnosis Diagnosis Type Effective Dates Health Status Clinical Service Informant Arm paresthesia, right Discharge Diagnosis 04/23/20 Carotid stenosis Discharge Diagnosis 04/23/20 Essential hypertension Discharge Diagnosis 04/23/20 Hyperglycemia Discharge Diagnosis 04/23/20 Tobacco user Discharge Diagnosis 04/23/20 Vital Signs Most recent to oldest [Reference Range]: 1 2 Height 153 cm (04/23/20 4:24 PM) 153 cm (04/23/20 4:09 PM) Weight 60.7 kg (04/23/20 4:09 PM) Oxygen Saturation [94-100 %] 98 % (04/23/20 4:09 PM) Pulse Rate [55-90 bpm] 81 bpm (04/23/20 4:09 PM) Body Mass Index [18.5-24.99] 25.93 *H* (04/23/20 4:09 PM) Blood Pressure [90-138/55-84 mm Hg] 114/ 60mm Hg (04/23/20 4:24 PM) 120/74mm Hg (04/23/20 4:09 PM) Temperature [96.8-100.4 DegF] 96.8 DegF (04/23/20 4:09 PM) Blood pressure sites Arm, left (04/23/20 4:09 PM) Temperature Route Temporal (04/23/20 4:09 PM) Weight Obtained Via Standing scale (04/23/20 4:09 PM) Social History Social History Type Response Smoking Status Current every day 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
--- OUTSIDE RECORDS SUMMARY | 2023-08-03 14:00 | XMS_ITS | Continuity of Care Document ---
Author Name Unknown Organization [facility] Address [address] [place] [address]- Care Team Providers Care Inside Sales Account Executive Name Role Phone Ti Caballero MD Primary Care Physician [place] [facility] [place]14[place] - 04/21/22 [facility] [address] [place], [place] [address] Attending Physician: Brooklyn Mckeon MD Referring Physician: Ti Caballero MD Allergies, Adverse Reactions, [...] B adult vaccine 05/06/09 Recorded 1Result Comment: [id number] given w/out incident 2Admin Note: vis given Medications amLODIPine 5 mg oral tablet 5 mg, 1, tablet, By Mouth, Daily, # 90 tablet, Refills 3, Tot. Refills 3, Maintenance, 10/22/21 16:26:00 EST, Route to Pharmacy Electronically, [facility]/pharmacy #[id number], 153, cm, 10/22/21 16:25:00 EST, Height Start Date: 10/22/21 Stop Date: 10/17/22 Status: Ordered chlorthalidone 25 mg oral tablet 25 mg, 1, tablet, By Mouth, Daily, # 30 tablet, Refills 5, Maintenance, 03/04/22 8:58:00 EDT, Partial fill upon patient request if the prescription is for a schedule II opioid drug. Start Date: 03/04/22 Stop Date: 04/03/22 Status: Ordered loratadine 10 mg oral tablet 1, tablet, By Mouth, Daily, PRN, for 90 days, # 90 tablet, Refills 3, Physician Stop, NEEDED FORALLERGIES, Route to Pharmacy Electronically, [facility], 153, cm, 10/22/21 16:25:00 EST, Height Start Date: 02/11/22 Stop Date: 05/12/22 Status: Ordered losartan 100 mg oral tablet 1 tablet, By Mouth, Daily, # 90 tablet, 3 Refills, [facility], 153, cm, 10/22/21 16:25:00 EST,Height Start Date: 03/01/22 Status: Ordered meloxicam 15 mg oral tablet 1 tablet = 15 mg, By Mouth, Daily, # 14 tablet, 0 Refills, Maintenance, 04/14/22 14:29:00 EDT, Tablet, [facility]/pharmacy #[id number], Partial fill upon patient request if the prescription is for a schedule II opioid drug., 153, cm, 04/14/22 14:10:00 EDT, Height Start Date: 04/14/22 Stop Date: 04/28/22 Status: Ordered mometasone 50 mcg/inh nasal spray See Instructions, USE 2 SPRAY IN BOTH NOSTRIL TWICE A DAY FOR 90 DAYS, # 51 Unknown, 2 Refills, [facility], [facility], USE 2 SPRAY IN BOTH NOSTRIL TWICE A DAY FOR 90 DAYS, 153, cm, 10/22/21 16:25:00 EST, Height Start Date: 02/11/22 Status: Ordered Problem List Condition Effective Dates Status Health Status Inform ant Allergic rhinitis(Confirmed) Active Carotid stenosis(Confirmed) Active Eczema(Confirmed) Active Essential hypertension(Confirmed) Active Fall(Confirmed) Active Hx of transient ischemic att ack (TIA)(Confirmed) 2013 Active Hemoglobin C trait(Confirmed) Active Hyperglycemia(Confirmed) Active Vital Signs Most recent to oldest [Reference Range]: 1 Height 153 cm (04/14/22 2:10 PM) Weight 58.9 kg (04/14/22 2:10 PM) Oxygen Saturation [94-100 %] 97 % (04/14/22 2:10 PM) Pulse Rate [55-90 bpm] 80 bpm (04/14/22 2:10 PM) Body Mass Index [18.5-24.99] 25.16 *H* (04/14/22 2:10 PM) Blood Pressure [90-138/55-84 mm Hg] 130/ 66mm Hg (04/14/22 2:10 PM) Blood pressure sites Arm, left (04/14/22 2:10 PM) Weight Obtained Via Standing scale (04/14/22 2:10 PM) Social History Social History Type Response Smoking Status Current every day 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
--- OUTSIDE RECORDS SUMMARY | 2023-08-03 14:00 | XMS_ITS | Continuity of Care Document ---
Author Name Unknown Organization 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 [address] [place], [place] [address] Encounter Diagnosis Right shoulder pain(Discharge Diagnosis) - 12/11/20 Attending Physician: Ti Caballero MD Allergies, Adverse Reactions, Alerts Substance Reaction Severity Status lisinopril Facial swelling Active penicillins Active Percocet 5/325 Active Immunizations Given and Recorded Vaccine Date Status Refusal Reason tetanus/diphtheria/pertussis, acel(Tdap) 1 04/23/20 Given tetanus/diphtheria/pertussis, acel(Tdap) 04/01/09 Given hepatitis B adult vaccine 2 11/08/11 Given 1Result Comment: [id number] given w/out incident 2Admin Note: vis given Medications amLODIPine 5 mg oral tablet 5 mg, 1, tablet, By Mouth, Daily, # 90 tablet, Refills 3, Tot. Refills 3, Maintenance, 01/03/20 10:45:00 EDT, Route to Pharmacy Electronically, [facility]/pharmacy #[id number], 153, cm, 11/01/19 15:27:00 [...] DIRECTIONS, # 100 Gm, 0 Refills, Maintenance, [facility], 30, PLEASE SEE ATTACHED FOR DETAILED DIRECTIONS, 153, cm, 12/11/20 10:20:00 EDT, Height, 59.9, kg, 05/14/19 13:52:00 EDT, Dry Weight Start Date: 12/17/20 Status: Ordered hydrochlorothiazide 25 mg oral tablet 25 mg, 1, tablet, By Mouth, Daily, # 90 tablet, Refills 3, Tot. Refills 3, Maintenance, 01/03/20 10:45:00 EDT, Route to Pharmacy Electronically, [facility]/pharmacy #[id number], 153, cm, 11/01/19 15:27:00 EST, Height, 59.9, kg, 05/14/19 13:52:00 EDT, Dry Weight Start Date: 01/03/20 Stop Date: 12/28/20 Status: Ordered loratadine 10 mg oral tablet 10 mg, 1, tablet, By Mouth, Daily, PRN, # 100 tablet, Refills 5, Tot. Refills 5, Maintenance, allergy symptoms, 01/03/20 10:54:00 EDT, Route to Pharmacy Electronically, [facility]/pharmacy #[id number], 153, cm, 11/01/19 15:27:00 EST, Height, 59.9, kg, 05/14/19 13:... Start Date: 01/03/20 Stop Date: 06/26/21 Status: Ordered losartan 100 mg oral tablet 1 tablet = 100 mg, By Mouth, Daily, # 90 tablet, 3 Refills, Maintenance, 01/03/20 10:45:00 EDT, Tablet, [facility]/pharmacy #[id number], 153, cm, 11/01/19 15:27:00 EST, Height, 59.9, kg, 05/14/19 13:52:00 EDT, Dry Weight Start Date: 01/03/20 Stop Date: 12/28/20 Status: Ordered Nasonex 50 mcg/inh nasal spray 2 sprays, Nares, Both, 2 times a day, # 3 each, 3 Refills, Maintenance, 01/03/20 10:54:00 EDT, [place], [id number], 2 sprays Nares, Both 2 times [...] Active Hemoglobin C trait(Confirmed) Active Hyperglycemia(Confirmed) Active Diagnosis Diagnosis Type Effective Dates Health Status Cl inical Service Informant Right shoulder pain Discharge Diagnosis 12/11/20 Vital Signs Most recent to oldest [Reference Range]: 1 Height 153 cm (12/11/20 10:20 AM) Weight 62.4 kg (12/11/20 10:20 AM) Oxygen Saturation [94-100 %] 97 % (12/11/20 10:20 AM) Pulse Rate [55-90 bpm] 71 bpm (12/11/20 10:20 AM) Body Mass Index [18.5-24.99] 26.66 *H* (12/11/20 10:20 AM) Blood Pressure [90-138/55-84 mm Hg] 114/ 56mm Hg (12/11/20 10:20 AM) Temperature [96.8-100.4 DegF] 98.3 DegF (12/11/20 10:20 AM) Mode of Delivery (Oxygen) Room air (12/11/20 10:20 AM) Blood pressure sites Arm, left (12/11/20 10:20 AM) Temperature Route Temporal (12/11/20 10:20 AM) Weight Obtained Via Standing scale (12/11/20 10:20 AM) Social History Social History Type Response Smoking Status Current every day 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
--- OUTSIDE RECORDS SUMMARY | 2023-08-03 14:00 | XMS_ITS | Continuity of Care Document ---
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 [place] Date(s): 01/15/20 - 01/22/20 [facility] [address] [place] [address]- [facility] Encounter Diagnosis Intermittent diarrhea(Discharge Diagnosis) - 01/15/20 Attending Physician: Ti Caballero MD Allergies, Adverse [...] EDT, Route to Pharmacy Electronically, [facility]/pharmacy #[id number], 153, cm, 11/01/19 15:27:00 EST, [...] EDT, Route to Pharmacy Electronically, [facility]/pharmacy #[id number], 153, cm, 11/01/19 15:27:00 EST, Height, 59.9, kg, 05/14/19 13:52:00 EDT, Dry Weight Start Date: 01/03/20 Stop Date: 12/28/20 Status: Ordered loratadine 10 mg oral tablet 10 mg, 1, tablet, By Mouth, Daily, PRN, # 100 tablet, Refills 5, Tot. Refills 5, Maintenance, allergy symptoms, 01/03/20 10:54:00 EDT, Route to Pharmacy Electronically, [facility]/pharmacy #[id number], 153, cm, 11/01/19 15:27:00 EST, Height, 59.9, kg, 05/14/19 13:... Start Date: 01/03/20 Stop Date: 06/26/21 Status: Ordered losartan 100 mg oral tablet 1 tablet = 100 mg, By Mouth, Daily, # 90 tablet, 3 Refills, Maintenance, 01/03/20 10:45:00 EDT, Tablet, [facility]/pharmacy #[id number], 153, cm, 11/01/19 15:27:00 EST, Height, 59.9, kg, 05/14/19 13:52:00 EDT, Dry Weight Start Date: 01/03/20 Stop Date: 12/28/20 Status: Ordered Nasonex 50 mcg/inh nasal spray 2 sprays, Nares, Both, 2 times a day, # 3 each, 3 Refills, Maintenance, 01/03/20 10:54:00 EDT, [place], [facility]/pharmacy #[id number], 2 sprays Nares, Both 2 [...] Effective Dates Health Status Clinical Service Informant Intermittent diarrhea Discharge Diagnosis 01/15/20 Social History Social History Type Response Smoking Status Current every day 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
--- OUTSIDE RECORDS SUMMARY | 2023-08-03 14:00 | XMS_ITS | Continuity of Care Document ---
Author Name Unknown Organization [facility] Address [address] [place] [address]- Care Team Providers Care Application Support Technician Name Role Phone Ti Caballero MD Primary Care Physician [place] [facility] [place]10/20 [facility] [address] [place] [address]- Encounter Diagnosis Right shoulder tendinitis(Discharge Diagnosis) - 12/03/20 Contusion of right hip region(Discharge Diagnosis) - 12/03/20 Knee contusion(Discharge Diagnosis) - 12/03/20 Essential hypertension(Discharge Diagnosis) - 12/03/20 Dizziness(Discharge Diagnosis) - 12/03/20 Attending Physician: Ti Caballero MD Allergies, Adverse Reactions, Alerts Substance Reaction Severity Status lisinopril Facial swelling Active penicillins Active Percocet 5/325 Active Immunizations Given and Recorded Vaccine Date Status Refusal Reason tetanus/diphtheria/pertussis, acel(Tdap) 1 04/23/20 Given tetanus/diphtheria/pertussis, acel(Tdap) 04/01/09 Given hepatitis B adult vaccine 2 11/08/11 Given 1Result Comment: [id number] given w/out incident 2Admin Note: vis given Medications amLODIPine 5 mg oral tablet 5 mg, 1, tablet, By Mouth, Daily, # 90 tablet, Refills 3, Tot. Refills 3, Maintenance, 01/03/20 10:45:00 EDT, Route to Pharmacy Electronically, [facility]/pharmacy #[id number], 153, cm, 11/01/19 15:27:00 EST, Height, [...] 01/03/20 10:45:00 EDT, Route to Pharmacy Electronically, [facility]/pharmacy #[id number], 153, cm, 11/01/19 15:27:00 EST, Height, 59.9, kg, 05/14/19 13:52:00 EDT, Dry Weight Start Date: 01/03/20 Stop Date: 12/28/20 Status: Ordered loratadine 10 mg oral tablet 10 mg, 1, tablet, By Mouth, Daily, PRN, # 100 tablet, Refills 5, Tot. Refills 5, Maintenance, allergy symptoms, 01/03/20 10:54:00 EDT, Route to Pharmacy Electronically, [facility]/pharmacy #[id number], 153, cm, 11/01/19 15:27:00 EST, Height, 59.9, kg, 05/14/19 13:... Start Date: 01/03/20 Stop Date: 06/26/21 Status: Ordered losartan 100 mg oral tablet 1 tablet = 100 mg, By Mouth, Daily, # 90 tablet, 3 Refills, Maintenance, 01/03/20 10:45:00 EDT, Tablet, [facility]/pharmacy #[id number], 153, cm, 11/01/19 15:27:00 EST, Height, 59.9, kg, 05/14/19 13:52:00 EDT, Dry Weight Start Date: 01/03/20 Stop Date: 12/28/20 Status: Ordered Nasonex 50 mcg/inh nasal spray 2 sprays, Nares, Both, 2 times a day, # 3 each, 3 Refills, Maintenance, 01/03/20 10:54:00 EDT, [place], [facility]/pharmacy #[id number], 2 sprays Nares, Both 2 times a day,x90 days, 153, cm, 11/01/19 15:27:00 EST, Height, 59.9, kg, 05/14/19 13:52:00 EDT, Dry Weight Start Date: 01/03/20 Stop Date: 12/28/20 Status: Ordered Voltaren 1% topical gel = 2 Gm, Topically, 4 times a day, PRN for pain, not to exceed 16 grams/day/single joint of lower extremities, # 100 Gm, 0 Refills, Maintenance, 11/24/20 13:28:00 EDT, Gel, [id number], Partialfill upon patient request if the prescription is fo... Start Date: 11/24/20 Status: Ordered Problem List Condition Effective Dates Status Health Status Inform ant Allergic rhinitis(Confirmed) Active Carotid stenosis(Confirmed) Active Eczema(Confirmed) Active Essential hypertension(Confirmed) Active Fall(Confirmed) Active Hx of transient ischemic att ack (TIA)(Confirmed) 2012 Active Hemoglobin C trait(Confirmed) Active Hyperglycemia(Confirmed) Active Tobacco user(Confirmed) Active Diagnosis Diagnosis Type Effective Dates Health Status Clinical Service Informant Right shoulder tendinitis Discharge Diagnosis 12/03/20 Contusion of right hip region Discharge Diagnosis 12/03/20 Knee contusion Discharge Diagnosis 12/03/20 Essential hypertension Discharge Diagnosis 12/03/20 Dizziness Discharge Diagnosis 12/03/20 Social History Social History Type Response Smoking Status Current every day 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
--- OUTSIDE RECORDS SUMMARY | 2023-08-03 14:01 | XMS_ITS | Continuity of Care Document ---
Author Name Unknown Organization [facility] Address [address] [place] [address]- Care Team Providers Care Sole Cutter Name Role Phone Ti Caballero MD Primary Care Physician Encounter [facility] Date(s): 01/12/22 - 02/11/22 [facility] [address] [place], [place] [address] Allergies, Adverse Reactions, Alerts Substance Reaction Severity [...] B adult vaccine 05/06/09 Recorded 1Result Comment: [id number] given w/out incident 2Admin Note: vis given Medications amLODIPine 5 mg oral tablet 5 mg, 1, tablet, By Mouth, Daily, # 90 tablet, Refills 3, Tot. Refills 3, Maintenance, 10/22/21 16:26:00 EST, Route to Pharmacy Electronically, [facility]/pharmacy #[id number], 153, cm, 10/22/21 16:25:00 EST, Height Start Date: 10/22/21 Stop Date: 10/17/22 Status: Ordered chlorthalidone 25 mg oral tablet 25 mg, 1, tablet, By Mouth, Daily, # 90 tablet, Refills 3, Tot. Refills 3, Maintenance, 08/13/21 10:50:00 EST, Route to Pharmacy Electronically, [facility]/pharmacy #[id number], replaces hydrochlorothiazide, 153,cm, 12/11/20 10:20:00 EDT, Height Start Date: 08/13/21 Stop Date: 08/08/22 Status: Ordered hydrochlorothiazide 25 mg oral tablet 1, tablet, By Mouth, Daily, # 90 tablet, Refills 0, Route to Pharmacy Electronically, [facility], 153, cm, 10/22/21 16:25:00 EST, Height Start Date: 10/25/21 Status: Ordered loratadine 10 mg oral tablet 1, tablet, By Mouth, Daily, PRN, for 90 days, # 90 tablet, Refills 3, Physician Stop, NEEDED FORALLERGIES, Route to Pharmacy Electronically, [facility], 153, cm, 10/22/21 16:25:00 EST, Height Start Date: 02/11/22 Stop Date: 05/12/22 Status: Ordered losartan 100 mg oral tablet 1 tablet, By Mouth, Daily, # 90 tablet, 3 Refills, Maintenance, 01/21/21 13:47:00 EDT, [facility], 153, cm, 12/11/20 10:20:00 EDT, Height, 59.9, kg, 05/14/19 13:52:00 EDT, Dry Weight Start Date: 01/21/21 Status: Ordered mometasone 50 mcg/inh nasal spray See Instructions, USE 2 SPRAY IN BOTH NOSTRIL TWICE A DAY FOR 90 DAYS, # 51 Unknown, 2 Refills, [facility], 90, USE 2 SPRAY IN BOTH NOSTRIL [...]
--- OUTSIDE RECORDS SUMMARY | 2023-08-03 14:01 | XMS_ITS | Continuity of Care Document ---
Author Name Unknown Organization [facility] Address [address] [place] [address]- Care Team Providers Care Pocket Creaser Name Role Phone Ti Caballero MD Primary Care Physician Encounter [facility] Date(s): 03/07/22 - 04/06/22 [facility] [address] [place], [place] [address] Allergies, Adverse Reactions, Alerts Substance Reaction Severity [...] B adult vaccine 05/06/09 Recorded 1Result Comment: [id number] given w/out incident 2Admin Note: vis given Medications amLODIPine 5 mg oral tablet 5 mg, 1, tablet, By Mouth, Daily, # 90 tablet, Refills 3, Tot. Refills 3, Maintenance, 10/22/21 16:26:00 EST, Route to Pharmacy Electronically, [facility]/pharmacy #[id number], 153, cm, 10/22/21 16:25:00 EST, [...] FORALLERGIES, Route to Pharmacy Electronically, [facility], 153, cm, 10/22/21 16:25:00 EST, Height Start Date: 02/11/22 Stop Date: 05/12/22 Status: Ordered losartan 100 mg oral tablet 1 tablet, By Mouth, Daily, # 90 tablet, 3 Refills, [facility], 153, cm, 10/22/21 16:25:00 EST,Height Start Date: 03/01/22 Status: Ordered mometasone 50 mcg/inh nasal spray See Instructions, USE 2 SPRAY IN BOTH NOSTRIL TWICE A DAY FOR 90 DAYS, # 51 Unknown, 2 Refills, [facility], 90, USE 2 SPRAY IN BOTH NOSTRIL [...]
--- OUTSIDE RECORDS SUMMARY | 2023-08-03 14:01 | XMS_ITS | Continuity of Care Document ---
Author Name Unknown Organization [facility] Address [address] [place] [address]- Care Team Providers Care Surveyor Chain Helper Name Role Phone Ti Caballero MD Primary Care Physician [place] [facility] [place] 10[place]/21 [facility] [address] [place], [place] [address] Encounter Diagnosis Carotid stenosis(Discharge Diagnosis) - 10/22/21 Hyperglycemia(Discharge Diagnosis) - 10/22/21 Attending Physician: Ti Caballero MD Allergies, Adverse [...] B adult vaccine 05/06/09 Recorded 1Result Comment: [id number] given w/out incident 2Admin Note: vis given Medications amLODIPine 5 mg oral tablet 5 mg, 1, tablet, By Mouth, Daily, # 90 tablet, Refills 3, Tot. Refills 3, Maintenance, 10/22/21 16:26:00 EST, Route to Pharmacy Electronically, [facility]/pharmacy #[id number], 153, cm, 10/22/21 16:25:00 EST, Height Start Date: 10/22/21 Stop Date: 10/17/22 Status: Ordered chlorthalidone 25 mg oral tablet 25 mg, 1, tablet, By Mouth, Daily, # 90 tablet, Refills 3, Tot. Refills 3, Maintenance, 08/13/21 10:50:00 EST, Route to Pharmacy Electronically, [facility]/pharmacy #[id number], replaces hydrochlorothiazide, 153,cm, 12/11/20 10:20:00 EDT, Height Start Date: 08/13/21 Stop Date: 08/08/22 Status: Ordered hydrochlorothiazide 25 mg oral tablet 1, tablet, By Mouth, Daily, # 90 tablet, Refills 0, Route to Pharmacy Electronically, [facility], 153, cm, 10/22/21 16:25:00 EST, Height Start Date: 10/25/21 Status: Ordered losartan 100 mg oral tablet 1 tablet, By Mouth, Daily, # 90 tablet, 3 Refills, Maintenance, 01/21/21 13:47:00 EDT, [facility], 153, cm, 12/11/20 10:20:00 EDT, Height, 59.9, kg, 05/14/19 13:52:00 EDT, Dry Weight Start Date: 01/21/21 Status: Ordered Problem List Condition Effective Dates Status Health Status Inform ant Allergic rhinitis(Confirmed) Active Carotid stenosis(Confirmed) Active Eczema(Confirmed) Active Essential hypertension(Confirmed) Active Fall(Confirmed) Active Hx of transient ischemic att ack (TIA)(Confirmed) 2012 Active Hemoglobin C trait(Confirmed) Active Hyperglycemia(Confirmed) Active Diagnosis Diagnosis Type Effective Dates Health Status Clinical Service Informant Carotid stenosis Discharge Diagnosis 10/22/21 Hyperglycemia Discharge Diagnosis 10/22/21 Vital Signs Most recent to oldest [Reference Range]: 1 2 Height 153 cm (10/22/21 4:25 PM) 153 cm (10/22/21 4:20 PM) Weight 59.5 kg (10/22/21 4:20 PM) Oxygen Saturation [94-100 %] 99 % (10/22/21 4:20 PM) Pulse Rate [55-90 bpm] 62 bpm (10/22/21 4:25 PM) 68 bpm (10/22/21 4:20 PM) Body Mass Index [18.5-24.99] 25.42 *H* (10/22/21 4:20 PM) Blood Pressure [90-138/55-84 mm Hg] 122/ 73mm Hg (10/22/21 4:25 PM) 138/82mm Hg (10/22/21 4:20 PM) Temperature [96.8-100.4 DegF] 97.2 DegF (10/22/21 4:20 PM) Mode of Delivery (Oxygen) Room air (10/22/21 4:20 PM) Blood pressure sites Arm, left (10/22/21 4:20 PM) Temperature Route Temporal (10/22/21 4:20 PM) Social History Social History Type Response Smoking Status Current every day 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
--- OUTSIDE RECORDS SUMMARY | 2023-08-03 14:01 | XMS_ITS | Continuity of Care Document ---
Author Name Unknown Organization [facility] Address [address] [place] [address]- Care Team Providers Care Roof Truss Detailer Name Role Phone Ti Caballero MD Primary Care Physician En[place] [facility] [place] 11/01/19 - 11/11/19 [facility] [address] [place] [address]- [facility] Attending Physician: Felipe Caputo Admitting Physician: Felipe Caputo Referring Physician: AdmtrFelipe Allergies, Adverse Reactions, Alerts Substance Reaction Severity Status lisinopril Facial swelling Active penicillins Active Percocet 5/325 Active Immunizations Given and Recorded Vaccine Date Status Refusal Reason hepatitis B adult vaccine 1 11/08/11 Given tetanus/diphtheria/pertussis, acel(Tdap) 04/01/09 Given 1Admin Note: vis given Medications amLODIPine 5 mg oral tablet 5 mg, 1, tablet, By Mouth, Daily, # 30 tablet, Refills 7, Tot. Refills 7, Maintenance, 05/30/19 10:34:20 EDT, Route to Pharmacy Electronically, [id number], [facility]/pharmacy #[id number], increase in dose Start Date: 05/30/19 Stop Date: 01/25/20 Status: Ordered aspirin 81 mg oral enteric coated tablet 1 tablet = 81 mg, By Mouth, Daily, # 90 tablet, 1 Refills, Maintenance, 03/31/14 11:20:46, EC Tablet, 1 tablet By Mouth Daily,x90 days Start Date: 03/31/14 Stop Date: 09/27/14 Status: Ordered hydrochlorothiazide 25 mg oral tablet 25 mg, 1, tablet, By Mouth, Daily, # 30 tablet, Refills 5, Tot. Refills 5, Maintenance, 05/20/19 15:03:05 EDT, Route to Pharmacy Electronically, [id number], [facility]/pharmacy #[id number] Start Date: 05/20/19 Stop Date: 11/16/19 Status: Ordered loratadine 10 mg oral tablet 10 mg, 1, tablet, By Mouth, Daily, PRN, # 30 tablet, Refills 5, Tot. Refills 5, Maintenance, allergy symptoms, 02/08/19 16:56:57 EDT, Route to Pharmacy Electronically, [id number], [facility]/pharmacy #[id number] Start Date: 02/08/19 Stop Date: 08/07/19 Status: Ordered losartan 100 mg oral tablet 1 tablet = 100 mg, By Mouth, Daily, # 30 tablet, 5 Refills, Maintenance, 05/20/19 15:02:51 EDT, Tablet Start Date: 05/20/19 Stop Date: 11/16/19 Status: Ordered Nasonex 50 mcg/inh nasal spray 2 sprays, Nares, Both, 2 times a day, # 17 Gm, 11 Refills, Maintenance, 02/08/19 16:56:28 EDT, [place], 2 sprays Nares, Both 2 times a day Start Date: 02/08/19 Status: Ordered tiZANidine 2 mg oral capsule 1 capsule = 2 mg, By Mouth, 3 times a day, PRN as needed for muscle spasm, # 90 capsule, 0 Refills,Maintenance, 05/30/19 10:29:44 EDT, Capsule Start Date: 05/30/19 Stop Date: 06/29/19 Status: Ordered Problem List Condition Effective Dates [...]
--- OUTSIDE RECORDS SUMMARY | 2023-08-03 14:01 | XMS_ITS | Continuity of Care Document ---
Author Name Unknown Organization [facility] Address [address] [place] [address]- Care Team Providers Care Account Liaison Name Role Phone Ti Caballero MD Primary Care Physician [place] [facility] [place] Date(s): 11/01/19 - 11/08/19 [facility] [address] [place] [address]- [facility] Attending Physician: Ti Caballero MD Allergies, Adverse [...] 05/30/19 10:34:20 EDT, Route to Pharmacy Electronically, [id number], [facility]/pharmacy #[id number], increase in dose Start Date: [...] 05/20/19 15:03:05 EDT, Route to Pharmacy Electronically, [id number], [facility]/pharmacy #[id number] Start Date: 05/20/19 Stop Date: 11/16/19 Status: Ordered loratadine 10 mg oral tablet 10 mg, 1, tablet, By Mouth, Daily, PRN, # 30 tablet, Refills 5, Tot. Refills 5, Maintenance, allergy symptoms, 02/08/19 16:56:57 EDT, Route to Pharmacy Electronically, [id number], [facility]/pharmacy #[id number] Start Date: 02/08/19 Stop Date: 08/07/19 Status: Ordered losartan 100 mg oral tablet 1 tablet = 100 mg, By Mouth, Daily, # 30 tablet, 5 Refills, Maintenance, 05/20/19 15:02:51 EDT, Tablet Start Date: 05/20/19 Stop Date: 11/16/19 Status: Ordered Nasonex 50 mcg/inh nasal spray 2 sprays, Nares, Both, 2 times a day, # 17 Gm, 11 Refills, Maintenance, 02/08/19 16:56:28 EDT, [place], 2 sprays Nares, Both 2 times a [...] trait(Confirmed) Active Hyperglycemia(Confirmed) Active Tobacco user(Confirmed) Active Vital Signs Most recent to oldest [Reference Range]: 1 Height 153 cm (11/01/19 3:27 PM) Weight 58.1 kg (11/01/19 3:27 PM) Oxygen Saturation [94-100 %] 99 % (11/01/19 3:27 PM) Pulse Rate [55-90 bpm] 71 bpm (11/01/19 3:27 PM) Body Mass Index [18.5-24.99] 24.82 (11/01/19 3:27 PM) Blood Pressure [90-138/55-84 mm Hg] 130/ 74mm Hg (11/01/19 3:27 PM) Mode of Delivery (Oxygen) Room air (11/01/19 3:27 PM) Blood pressure sites Arm, left (11/01/19 3:27 PM) Social History Social History Type Response Smoking Status Current every day 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
--- OUTSIDE RECORDS SUMMARY | 2023-08-03 14:01 | XMS_ITS | Continuity of Care Document ---
Author Name Unknown Organization [facility] Address [address] [place] [address]- Care Team Providers Care Center Sales And Service Associate Name Role Phone Ti Caballero MD Primary Care Physician [place] [facility] [facility] [place] 08/[place] - 08/20/21 [facility] [address] [place], [place] [email or web address] Attending Physician: Ti Caballero MD Allergies, Adverse [...] B adult vaccine 05/06/09 Recorded 1Result Comment: [id number] given w/out incident 2Admin Note: vis given Medications amLODIPine 5 mg oral tablet 5 mg, 1, tablet, By Mouth, Daily, # 90 tablet, Refills 0, Tot. Refills 0, Maintenance, 07/11/21 13:47:00 EDT, Route to Pharmacy Electronically, [facility]/pharmacy #[id number], 153, cm, 12/11/20 10:20:00 EDT, Height Start Date: 07/11/21 Stop Date: 10/09/21 Status: Ordered aspirin 81 mg oral enteric coated tablet 1 tablet = 81 mg, By Mouth, Daily, # 90 tablet, 1 Refills, Maintenance, 03/31/14 11:20:46, EC Tablet, 1 tablet By Mouth Daily,x90 days Start Date: 03/31/14 Stop Date: 09/27/14 Status: Ordered chlorthalidone 25 mg oral tablet 25 mg, 1, tablet, By Mouth, Daily, # 90 tablet, Refills 3, Tot. Refills 3, Maintenance, 08/13/21 10:50:00 EST, Route to Pharmacy Electronically, [facility]/pharmacy #[id number], replaces hydrochlorothiazide, 153,cm, 12/11/20 10:20:00 EDT, Height Start Date: 08/13/21 Stop Date: 08/08/22 Status: Ordered diclofenac 1% topical gel See Instructions, PLEASE SEE ATTACHED FOR DETAILED DIRECTIONS, # 100 Gm, 0 Refills, Maintenance, [facility], 30, PLEASE SEE ATTACHED FOR DETAILED DIRECTIONS, 153, cm, 12/11/20 10:20:00 EDT, Height, 59.9, kg, 05/14/19 13:52:00 EDT, Dry Weight Start Date: 12/17/20 Status: Ordered loratadine 10 mg oral tablet 10 mg, 1, tablet, By Mouth, Daily, PRN, # 100 tablet, Refills 1, Tot. Refills 1, Maintenance, allergy symptoms, 06/26/21 10:54:00 EDT, Route to Pharmacy Electronically, [facility]/pharmacy #[id number], 153, cm, 12/11/20 10:20:00 EDT, Height, 59.9, kg, 05/14/19 13:... Start Date: 06/26/21 Stop Date: 12/23/21 Status: Ordered losartan 100 mg oral tablet 1 tablet, By Mouth, Daily, # 90 tablet, 3 Refills, Maintenance, 01/21/21 13:47:00 EDT, [facility], 153, cm, 12/11/20 10:20:00 EDT, Height, 59.9, kg, 05/14/19 13:52:00 EDT, Dry Weight Start Date: 01/21/21 Status: Ordered Nasonex 50 mcg/inh nasal spray 2 sprays, Nares, Both, 2 times a day, # 3 each, 1 Refills, Maintenance, 01/21/21 9:44:00 EDT, [place], [facility]/pharmacy #[id number], 2 sprays Nares, Both 2 [...] oldest [Reference Range]: 1 Height 153 cm (08/13/21 10:53 AM) Weight 59.5 kg (08/13/21 10:53 AM) Oxygen Saturation [94-100 %] 98 % (08/13/21 10:53 AM) Pulse Rate [55-90 bpm] 78 bpm (08/13/21 10:53 AM) Body Mass Index [18.5-24.99] 25.42 *H* (08/13/21 10:53 AM) Blood Pressure [90-138/55-84 mm Hg] 132/ 74mm Hg (08/13/21 10:53 AM) Temperature [96.8-100.4 DegF] 97.5 DegF (08/13/21 10:53 AM) Mode of Delivery (Oxygen) Room air (08/13/21 10:53 AM) Blood pressure sites Arm, left (08/13/21 10:53 AM) Temperature Route Temporal (08/13/21 10:53 AM) Social History Social History Type Response Smoking Status Current every day 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
--- OUTSIDE RECORDS SUMMARY | 2023-08-03 14:01 | XMS_ITS | Continuity of Care Document ---
Author Name Unknown Organization [facility] Address [address] [place] [address]- Care Team Providers Care Seed Potato Cutter Name Role Phone Ti Caballero MD Primary Care Physician Encounter [facility] Date(s): 07/29/20 - 08/28/20 [facility] [address] [place], [place] [address] Allergies, Adverse Reactions, Alerts Substance Reaction Severity Status lisinopril Facial swelling Active penicillins Active Percocet 5/325 Active Immunizations Given and Recorded Vaccine Date Status Refusal Reason tetanus/diphtheria/pertussis, acel(Tdap) 1 04/23/20 Given tetanus/diphtheria/pertussis, acel(Tdap) 04/01/09 Given hepatitis B adult vaccine 2 11/08/11 Given 1Result Comment: [id number] given w/out incident 2Admin Note: vis given Medications amLODIPine 5 mg oral tablet 5 mg, 1, tablet, By Mouth, Daily, # 90 tablet, Refills 3, Tot. Refills 3, Maintenance, 01/03/20 10:45:00 EDT, Route to Pharmacy Electronically, [facility]/pharmacy #[id number], 153, cm, 11/01/19 15:27:00 EST, [...] 01/03/20 10:45:00 EDT, Route to Pharmacy Electronically, [facility]/pharmacy #[id number], 153, cm, 11/01/19 15:27:00 EST, Height, 59.9, kg, 05/14/19 13:52:00 EDT, Dry Weight Start Date: 01/03/20 Stop Date: 12/28/20 Status: Ordered loratadine 10 mg oral tablet 10 mg, 1, tablet, By Mouth, Daily, PRN, # 100 tablet, Refills 5, Tot. Refills 5, Maintenance, allergy symptoms, 01/03/20 10:54:00 EDT, Route to Pharmacy Electronically, [facility]/pharmacy #[id number], 153, cm, 11/01/19 15:27:00 EST, Height, 59.9, kg, 05/14/19 13:... Start Date: 01/03/20 Stop Date: 06/26/21 Status: Ordered losartan 100 mg oral tablet 1 tablet = 100 mg, By Mouth, Daily, # 90 tablet, 3 Refills, Maintenance, 01/03/20 10:45:00 EDT, Tablet, [facility]/pharmacy #[id number], 153, cm, 11/01/19 15:27:00 EST, Height, 59.9, kg, 05/14/19 13:52:00 EDT, Dry Weight Start Date: 01/03/20 Stop Date: 12/28/20 Status: Ordered Nasonex 50 mcg/inh nasal spray 2 sprays, Nares, Both, 2 times a day, # 3 each, 3 Refills, Maintenance, 01/03/20 10:54:00 EDT, [place], [facility]/pharmacy #[id number], 2 sprays Nares, Both 2 [...]
--- OUTSIDE RECORDS SUMMARY | 2023-08-03 14:01 | XMS_ITS | Continuity of Care Document ---
Author Name Unknown Organization [facility] Address [address] [place] [address]- Care Team Providers Care Flask Carrier Name Role Phone Ti Caballero MD Primary Care Physician [place] [facility] [place] 03/11/22 [facility] [address] [place], [place] [address] Encounter Diagnosis Pruritus(Discharge Diagnosis) - 03/04/22 Attending Physician: Ti Caballero MD Allergies, Adverse [...] B adult vaccine 05/06/09 Recorded 1Result Comment: [id number] given w/out incident 2Admin Note: vis given Medications amLODIPine 5 mg oral tablet 5 mg, 1, tablet, By Mouth, Daily, # 90 tablet, Refills 3, Tot. Refills 3, Maintenance, 10/22/21 16:26:00 EST, Route to Pharmacy Electronically, [facility]/pharmacy #[id number], 153, cm, 10/22/21 16:25:00 EST, Height [...] FORALLERGIES, Route to Pharmacy Electronically, [id number], 153, cm, 10/22/21 16:25:00 EST, Height Start Date: 02/11/22 Stop Date: 05/12/22 Status: Ordered losartan 100 mg oral tablet 1 tablet, By Mouth, Daily, # 90 tablet, 3 Refills, [id number], 153, cm, 10/22/21 16:25:00 EST,Height Start Date: 03/01/22 Status: Ordered mometasone 50 mcg/inh nasal spray See Instructions, USE 2 SPRAY IN BOTH NOSTRIL TWICE A DAY FOR 90 DAYS, # 51 Unknown, 2 Refills, [id number], 90, USE 2 SPRAY IN BOTH NOSTRIL [...] Diagnosis Diagnosis Type Effective Dates Health Status Clini brad Service Informant Pruritus Discharge Diagnosis 03/04/22 Vital Signs Most recent to oldest [Reference Range]: 1 Height 153 cm (03/04/22 8:51 AM) Weight 59.0 kg (03/04/22 8:51 AM) Oxygen Saturation [94-100 %] 100 % (03/04/22 8:51 AM) Pulse Rate [55-90 bpm] 74 bpm (03/04/22 8:51 AM) Body Mass Index [18.5-24.99] 25.2 *H* (03/04/22 8:51 AM) Blood Pressure [90-138/55-84 mm Hg] 132/ 74mm Hg (03/04/22 8:51 AM) Mode of Delivery (Oxygen) Room air (03/04/22 8:51 AM) Blood pressure sites Arm, left (03/04/22 8:51 AM) Social History Social History Type Response Smoking Status Current every day 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
--- OUTSIDE RECORDS SUMMARY | 2023-08-03 14:01 | XMS_ITS | Continuity of Care Document ---
Author Name Unknown Organization [facility] Address [address] [place] [address]- Care Team Providers Care Unscrambler Name Role Phone Ti Caballero MD Primary Care Physician [place] [facility] [place] 01/12/21 - 02/11/21 [facility] [address] [place], [place] [address] Allergies, Adverse Reactions, Alerts Substance Reaction Severity Status lisinopril Facial swelling Active penicillins Active Percocet 5/325 Active Immunizations Given and Recorded Vaccine Date Status Refusal Reason tetanus/diphtheria/pertussis, acel(Tdap) 1 04/23/20 Given tetanus/diphtheria/pertussis, acel(Tdap) 04/01/09 Given hepatitis B adult vaccine 2 11/08/11 Given 1Result Comment: [id number] given w/out incident 2Admin Note: vis given Medications amLODIPine 5 mg oral tablet 5 mg, 1, tablet, By Mouth, Daily, # 90 tablet, Refills 1, Tot. Refills 1, Maintenance, 01/12/21 13:47:00 EDT, Route to Pharmacy Electronically, [facility]/pharmacy #[id number], 153, cm, 12/11/20 10:20:00 EDT, Height, [...] DIRECTIONS, # 100 Gm, 0 Refills, Maintenance, [id number], 30, PLEASE SEE ATTACHED FOR DETAILED DIRECTIONS, 153, cm, 12/11/20 10:20:00 EDT, Height, 59.9, kg, 05/14/19 13:52:00 EDT, Dry Weight Start Date: 12/17/20 Status: Ordered hydrochlorothiazide 25 mg oral tablet 25 mg, 1, tablet, By Mouth, Daily, # 90 tablet, Refills 1, Tot. Refills 1, Maintenance, 01/21/21 9:44:00 EDT, Route to Pharmacy Electronically, [facility]/pharmacy #[id number], 153, cm, 12/11/20 10:20:00 EDT, Height, 59.9, kg, 05/14/19 13:52:00 EDT, Dry Weight Start Date: 01/21/21 Stop Date: 07/20/21 Status: Ordered loratadine 10 mg oral tablet 10 mg, 1, tablet, By Mouth, Daily, PRN, # 100 tablet, Refills 1, Tot. Refills 1, Maintenance, allergy symptoms, 06/26/21 10:54:00 EDT, Route to Pharmacy Electronically, [facility]/pharmacy #[id number], 153, cm, 12/11/20 10:20:00 EDT, Height, 59.9, kg, 05/14/19 13:... Start Date: 06/26/21 Stop Date: 12/23/21 Status: Ordered loratadine 10 mg oral tablet 10 mg, 1, tablet, By Mouth, Daily, PRN, for 90 days, # 100 tablet, Refills 5, Tot. Refills 5, Hard Stop 06/26/21 10:54:00 EDT, allergy symptoms, 01/03/20 10:54:00 EDT, Route to Pharmacy Electronically, [facility]/pharmacy #[id number], 153, cm, 11/01/19 15:27:00 ES... Start Date: 01/03/20 Stop Date: 06/26/21 Status: Ordered losartan 100 mg oral tablet 1 tablet, By Mouth, Daily, # 90 tablet, 3 Refills, Maintenance, 01/21/21 13:47:00 EDT, [facility], 153, cm, 12/11/20 10:20:00 EDT, Height, 59.9, kg, 05/14/19 13:52:00 EDT, Dry Weight Start Date: 01/21/21 Status: Ordered Nasonex 50 mcg/inh nasal spray 2 sprays, Nares, Both, 2 times a day, # 3 each, 1 Refills, Maintenance, 01/21/21 9:44:00 EDT, [place], [id number], 2 sprays Nares, Both 2 [...]
--- OUTSIDE RECORDS SUMMARY | 2023-08-03 14:01 | XMS_ITS | Continuity of Care Document ---
Author Name Unknown Organization [facility] Address [address] [place] [address]- Care Team Providers Care Usability Architect Name Role Phone Ti Caballero MD Primary Care Physician Encounter [facility] [place] Date(s): 08/13/21 - 11/13/21 [facility] [address] [place], [place] [address] Attending Physician: Ti Caballero MD Allergies, Adverse [...] B adult vaccine 05/06/09 Recorded 1Result Comment: [id number] given w/out incident 2Admin Note: vis given Medications amLODIPine 5 mg oral tablet 5 mg, 1, tablet, By Mouth, Daily, # 90 tablet, Refills 3, Tot. Refills 3, Maintenance, 10/22/21 16:26:00 EST, Route to Pharmacy Electronically, [facility]/pharmacy #[id number], 153, cm, 10/22/21 16:25:00 EST, Height Start Date: 10/22/21 Stop Date: 10/17/22 Status: Ordered chlorthalidone 25 mg oral tablet 25 mg, 1, tablet, By Mouth, Daily, # 90 tablet, Refills 3, Tot. Refills 3, Maintenance, 08/13/21 10:50:00 EST, Route to Pharmacy Electronically, [facility]/pharmacy #[id number], replaces hydrochlorothiazide, 153,cm, 12/11/20 10:20:00 EDT, Height Start Date: 08/13/21 Stop Date: 08/08/22 Status: Ordered hydrochlorothiazide 25 mg oral tablet 1, tablet, By Mouth, Daily, # 90 tablet, Refills 0, Route to [facility]acy Electronically, [facility], 153, cm, 10/22/21 16:25:00 EST, Height Start Date: 10/25/21 Status: Ordered losartan 100 mg oral tablet 1 tablet, By Mouth, Daily, # 90 tablet, 3 Refills, Maintenance, 01/21/21 13:47:00 EDT, [facility], 153, cm, 12/11/20 10:20:00 EDT, Height, 59.9, [...]
--- OUTSIDE RECORDS SUMMARY | 2023-08-03 14:01 | XMS_ITS | Continuity of Care Document ---
Author Name Unknown Organization [facility] Address [address] [place] [address]- Care Team Providers Care Pediatric Physiatrist Name Role Phone Ti Caballero MD Primary Care Physician Encounter [facility] Date(s): 08/07/20 - 09/06/20 [facility] [address] [place], [place] [address] Allergies, Adverse Reactions, Alerts Substance Reaction Severity Status lisinopril Facial swelling Active penicillins Active Percocet 5/325 Active Immunizations Given and Recorded Vaccine Date Status Refusal Reason tetanus/diphtheria/pertussis, acel(Tdap) 1 04/23/20 Given tetanus/diphtheria/pertussis, acel(Tdap) 04/01/09 Given hepatitis B adult vaccine 2 11/08/11 Given 1Result Comment: [id number] given w/out incident 2Admin Note: vis given Medications amLODIPine 5 mg oral tablet 5 mg, 1, tablet, By Mouth, Daily, # 90 tablet, Refills 3, Tot. Refills 3, Maintenance, 01/03/20 10:45:00 EDT, Route to Pharmacy Electronically, [facility]/pharmacy #[id number], 153, cm, 11/01/19 15:27:00 EST, Height, [...] 01/03/20 10:45:00 EDT, Route to Pharmacy Electronically, [facility]/pharmacy #[id number], 153, cm, 11/01/19 15:27:00 EST, Height, 59.9, kg, 05/14/19 13:52:00 EDT, Dry Weight Start Date: 01/03/20 Stop Date: 12/28/20 Status: Ordered loratadine 10 mg oral tablet 10 mg, 1, tablet, By Mouth, Daily, PRN, # 100 tablet, Refills 5, Tot. Refills 5, Maintenance, allergy symptoms, 01/03/20 10:54:00 EDT, Route to Pharmacy Electronically, [facility]/pharmacy #[id number], 153, cm, 11/01/19 15:27:00 EST, Height, 59.9, kg, 05/14/19 13:... Start Date: 01/03/20 Stop Date: 06/26/21 Status: Ordered losartan 100 mg oral tablet 1 tablet = 100 mg, By Mouth, Daily, # 90 tablet, 3 Refills, Maintenance, 01/03/20 10:45:00 EDT, Tablet, [facility]/pharmacy #[id number], 153, cm, 11/01/19 15:27:00 EST, Height, 59.9, kg, 05/14/19 13:52:00 EDT, Dry Weight Start Date: 01/03/20 Stop Date: 12/28/20 Status: Ordered Nasonex 50 mcg/inh nasal spray 2 sprays, Nares, Both, 2 times a day, # 3 each, 3 Refills, Maintenance, 01/03/20 10:54:00 EDT, [place], [facility]/pharmacy #[id number], 2 sprays Nares, Both 2 times [...]
--- OUTSIDE RECORDS SUMMARY | 2023-08-03 14:01 | XMS_ITS | Continuity of Care Document ---
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 Name Role Phone Ti Caballero MD Primary Care Physician Encounter [facility] [place] Date(s): 01/20/21 - 02/19/21 [facility] [address] [place] [address]- Allergies, Adverse Reactions, Alerts Substance Reaction Severity Status lisinopril Facial swelling Active penicillins Active Percocet 5/325 Active Immunizations Given and Recorded Vaccine Date Status Refusal Reason tetanus/diphtheria/pertussis, acel(Tdap) 1 04/23/20 Given tetanus/diphtheria/pertussis, acel(Tdap) 04/01/09 Given hepatitis B adult vaccine 2 11/08/11 Given 1Result Comment: [id number] given w/out incident 2Admin Note: vis given Medications amLODIPine 5 mg oral tablet 5 mg, 1, tablet, By Mouth, Daily, # 90 tablet, Refills 1, Tot. Refills 1, Maintenance, 01/12/21 13:47:00 EDT, Route to Pharmacy Electronically, [facility]/pharmacy #[id number], 153, cm, 12/11/20 10:20:00 EDT, [...] DIRECTIONS, # 100 Gm, 0 Refills, Maintenance, [facility] 288[facility], 30, PLEASE SEE ATTACHED FOR DETAILED DIRECTIONS, 153, cm, 12/11/20 10:20:00 EDT, Height, 59.9, kg, 05/14/19 13:52:00 EDT, Dry Weight Start Date: 12/17/20 Status: Ordered hydrochlorothiazide 25 mg oral tablet 25 mg, 1, tablet, By Mouth, Daily, # 90 tablet, Refills 1, Tot. Refills 1, Maintenance, 01/21/21 9:44:00 EDT, Route to Pharmacy Electronically, [facility]/pharmacy #[id number], 153, cm, 12/11/20 10:20:00 EDT, Height, 59.9, kg, 05/14/19 13:52:00 EDT, Dry Weight Start Date: 01/21/21 Stop Date: 07/20/21 Status: Ordered loratadine 10 mg oral tablet 10 mg, 1, tablet, By Mouth, Daily, PRN, # 100 tablet, Refills 1, Tot. Refills 1, Maintenance, allergy symptoms, 06/26/21 10:54:00 EDT, Route to Pharmacy Electronically, [facility]/pharmacy #[id number], 153, cm, 12/11/20 10:20:00 EDT, [id number], 153, cm, 11/01/19 15:27:00 ES... Start Date: 01/03/20 Stop Date: 06/26/21 Status: Ordered losartan 100 mg oral tablet 1 tablet, By Mouth, Daily, # 90 tablet, 3 Refills, Maintenance, 01/21/21 13:47:00 EDT, [facility] ST[facility] 17[facility], 153, cm, 12/11/20 10:20:00 EDT, Height, 59.9, kg, 05/14/19 13:52:00 EDT, Dry Weight Start Date: 01/21/21 Status: Ordered Nasonex 50 mcg/inh nasal spray 2 sprays, Nares, Both, 2 times a day, # 3 each, 1 Refills, Maintenance, 01/21/21 9:44:00 EDT, [place], [id number], 2 sprays Nares, Both 2 [...]
--- OUTSIDE RECORDS SUMMARY | 2023-08-03 14:01 | XMS_ITS | Continuity of Care Document ---
Author Name Unknown Organization 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 [address] [place] [address]- Encounter Diagnosis Fall(Discharge Diagnosis) - 11/24/20 Attending Physician: Sindi Winn MD Referring Physician: Ti Caballero MD Allergies, Adverse Reactions, Alerts Substance Reaction Severity Status lisinopril Facial swelling Active penicillins Active Percocet 5/325 Active Immunizations Given and Recorded Vaccine Date Status Refusal Reason tetanus/diphtheria/pertussis, acel(Tdap) 1 04/23/20 Given tetanus/diphtheria/pertussis, acel(Tdap) 04/01/09 Given hepatitis B adult vaccine 2 11/08/11 Given 1Result Comment: [id number] given w/out incident 2Admin Note: vis given Medications amLODIPine 5 mg oral tablet 5 mg, 1, tablet, By Mouth, Daily, # 90 tablet, Refills 3, Tot. Refills 3, Maintenance, 01/03/20 10:45:00 EDT, Route to Pharmacy Electronically, [facility]/pharmacy #[id number], 153, cm, 11/01/19 15:27:00 EST, [...] 01/03/20 10:45:00 EDT, Route to Pharmacy Electronically, [facility]/pharmacy #[id number], 153, cm, 11/01/19 15:27:00 EST, Height, 59.9, kg, 05/14/19 13:52:00 EDT, Dry Weight Start Date: 01/03/20 Stop Date: 12/28/20 Status: Ordered loratadine 10 mg oral tablet 10 mg, 1, tablet, By Mouth, Daily, PRN, # 100 tablet, Refills 5, Tot. Refills 5, Maintenance, allergy symptoms, 01/03/20 10:54:00 EDT, Route to Pharmacy Electronically, [facility]/pharmacy #[id number], 153, cm, 11/01/19 15:27:00 EST, Height, 59.9, kg, 05/14/19 13:... Start Date: 01/03/20 Stop Date: 06/26/21 Status: Ordered losartan 100 mg oral tablet 1 tablet = 100 mg, By Mouth, Daily, # 90 tablet, 3 Refills, Maintenance, 01/03/20 10:45:00 EDT, Tablet, [facility]/pharmacy #[id number], 153, cm, 11/01/19 15:27:00 EST, Height, 59.9, kg, 05/14/19 13:52:00 EDT, Dry Weight Start Date: 01/03/20 Stop Date: 12/28/20 Status: Ordered Nasonex 50 mcg/inh nasal spray 2 sprays, Nares, Both, 2 times a day, # 3 each, 3 Refills, Maintenance, 01/03/20 10:54:00 EDT, [place], [facility]/pharmacy #[id number], 2 sprays Nares, Both 2 [...] Refills, Maintenance, 11/24/20 13:28:00 EDT, [place], [id number], Partialfill upon patient request if the prescription [...] Dates Health Status Clini brad Service Informant Fall Discharge Diagnosis 11/24/20 Social History Social History Type Response Smoking Status Current every day 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
--- OUTSIDE RECORDS SUMMARY | 2023-08-03 14:01 | XMS_ITS | Continuity of Care Document ---
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 Name Role Phone Ti Caballero MD Primary Care Physician Encounter [facility] [place] Date(s): 12/11/20 - 01/10/21 [facility] [address] [place], [place] [address] Allergies, Adverse Reactions, Alerts Substance Reaction Severity Status lisinopril Facial swelling Active penicillins Active Percocet 5/325 Active Immunizations Given and Recorded Vaccine Date Status Refusal Reason tetanus/diphtheria/pertussis, acel(Tdap) 1 04/23/20 Given tetanus/diphtheria/pertussis, acel(Tdap) 04/01/09 Given hepatitis B adult vaccine 2 11/08/11 Given 1Result Comment: [id number] given w/out incident 2Admin Note: vis given Medications amLODIPine 5 mg oral tablet 5 mg, 1, tablet, By Mouth, Daily, # 90 tablet, Refills 3, Tot. Refills 3, Maintenance, 01/03/20 10:45:00 EDT, Route to Pharmacy Electronically, [facility]/pharmacy #[id number], 153, cm, 11/01/19 15:27:00 EST, [...] DIRECTIONS, # 100 Gm, 0 Refills, Maintenance, [facility] ST[facility] 79135, 30, PLEASE SEE ATTACHED FOR DETAILED DIRECTIONS, 153, cm, 12/11/20 10:20:00 EDT, Height, 59.9, kg, 05/14/19 13:52:00 EDT, Dry Weight Start Date: 12/17/20 Status: Ordered hydrochlorothiazide 25 mg oral tablet 25 mg, 1, tablet, By Mouth, Daily, # 90 tablet, Refills 3, Tot. Refills 3, Maintenance, 01/03/20 10:45:00 EDT, [id number], [facility], cm, 11/01/19 15:27:00 EST, Height, 59.9, kg, 05/14/19 13:52:00 EDT, Dry Weight Start Date: 01/03/20 Stop Date: 12/28/20 Status: Ordered loratadine 10 mg oral tablet 10 mg, 1, tablet, By Mouth, Daily, PRN, # 100 tablet, Refills 5, Tot. Refills 5, Maintenance, allergy symptoms, 01/03/20 10:54:00 EDT, [id number], 153, cm, 11/01/19 15:27:00 EST, Height, 59.9, kg, 05/14/19 13:... Start Date: 01/03/20 Stop Date: 06/26/21 Status: Ordered losartan 100 mg oral tablet 1 tablet = 100 mg, By Mouth, Daily, # 90 tablet, 3 Refills, Maintenance, 01/03/20 10:45:00 EDT, Tablet, [facility]/pharmacy #[id number], 153, cm, 11/01/19 15:27:00 EST, Height, 59.9, kg, 05/14/19 13:52:00 EDT, Dry Weight Start Date: 01/03/20 Stop Date: 12/28/20 Status: Ordered Nasonex 50 mcg/inh nasal spray 2 sprays, Nares, Both, 2 times a day, # 3 each, 3 Refills, Maintenance, 01/03/20 10:54:00 EDT, [place], [facility]/pharmacy #[id number], 2 sprays Nares, Both 2 [...]
[2023-08-03 15:29] VITALS: BP 125/69; PULSE 60; RESP 18; TEMP 36.7; O2SAT 97
== END 2023-08-03 15:30 | disposition home or self-care (01) ==
PROVIDERS: Registered Nurse Emergency; Emergency Provider Emergency Medicine
DX: Z04.2 Encounter for examination and observation following work accident (principal); R42 Dizziness and giddiness; S06.0X0D Concussion without loss of consciousness, subsequent encounter; W20.8XXD Other cause of strike by thrown, projected or falling object, subsequent encounter
CPT/HCPCS: 36415; 70450; 80048; 85025; 93005; 99284